=== PATIENT | female | born 2000 | race Caucasian/White ===

== ENCOUNTER 2025-06-07 11:33 | Outpatient (CLI) | payer BC, SELFPAY ==
--- NOTE | ~2025-06-07 | US_ITS ---
EXAMINATION: US OB <=14 wk fetus w TV DATE: 06/07/2025 12:41 INDICATION: First trimester bleeding TECHNIQUE: Real-time pelvic ultrasound utilizing both a transvaginal and transabdominal probe was performed. The interpreting radiologist was not present for the study. COMPARISON: None. FINDINGS: The uterus measures 6.6 x 5.7 x 3.6 cm. There is an intrauterine gestational sac with double deciduous sign and 3 mm yolk sac but no discernible pole. The mean sac diameter measures 11-12 mm, which correlates with an estimated gestational age of 5 weeks and 6 days. The right ovary measures 3.2 x 2.7 x 1.8 cm. The left ovary measures 3.9 x 3.3 x 1.9 cm. There are few small anechoic follicles at both ovaries with larger 2.1 x 2.0 x 1.3 cm anechoic cyst at the left ovary. Vascular flow identified in both ovaries on color Doppler. There is no free fluid in the pelvis. IMPRESSION: 1. Single intrauterine gestational sac with yolk sac but no discernible pole likely due to early stage of . Consider follow-up with serial beta-hCG levels with short interval repeat imaging to confirm viability or more accurate assessment of estimated gestational age. 2. Gestational age by ultrasound based upon mean sac diameter of 5 weeks 6 day(s) +/- 4 day(s) with ultrasound estimated date of delivery ([facility]AYA) of 02/01/2026. Reviewed, dictated and finalized at location A. IMPRESSION: 1. Single intrauterine gestational sac with yolk sac but no discernible p ole likely due to early stage of . Consider follow-up with serial beta -hCG levels with short interval repeat imaging to confirm viability or mo re accurate assessment of estimated gestational age. 2. Gestational age by ultrasound based upon mean sac diameter of 5 weeks 6 day (s) +/- 4 day(s) with ultrasound estimated date of delivery (AMAYA) of 02/01/2026.
--- OUTSIDE RECORDS SUMMARY | 2025-06-07 12:11 | XMS_ITS | Encounter Summary ---
Author Organization [facility] Address [address] [place] [id number] Care Team Providers Care Measurement Supervisor Name Role Phone Ann Paez DO Primary Care Provider [phone] Millie Sam MD Primary Care Provider [phone] None, Provider Primary Care Provider Unavaila ble Ann Paez DO Primary Care Provider [phone] Encounter Details Date Type Department Care Team (Late st Contact Info) Description 01/27/2020 Results Notification [facility] [address] [place], [place] [id number] Lila Vigil FNP Social History Tobacco Use Types Packs/Day Years Used Date Smoking Tobacco: Never Smokeless Tobacco: Never Comments Unknown Sex and Gender Information Value Date Recorded Sex Assigned at Female 11/06/2024 10:37 AM ANTIQUE JEWELRY REPAIRER Legal Sex Female 7:59 AM CDT Gender Identity Female 11/06/2024 10:37 AM ANTIQUE JEWELRY REPAIRER Sexual Orientation Straight 11/06/2024 10 :37 AM ANTIQUE JEWELRY REPAIRER COVID-19 Exposure Response Date Recorded In the last month, have you been in contact with someone who was confirmed or suspected to have Coronavirus / COVID-19? No / Unsure 01/25/2020 9:35 AM CDT documented as of this encounter Progress Notes * PAULO Pathak - 01/27/2020 12:35 PM CDT COVID test negative 1. Discussed current [place] Department of Public Health guidelines for testing and treatment. They willcall you with test results. 2. Vicky Sorneson may return to work once the following conditions are met: ??? Fever free for at least 24 hours without using any fever-reducing medications such as acetaminophen or ibuprofen. ??? Symptoms have improved documented in this encounter Plan of Treatment Not on file documented as of this encounter Visit Diagnoses Not on filedocumented in this encounter Additional Health Concerns Infection Onset Date Last Indicated Resolved Time COVID-19 Rule Out 06/25/2021 06/25/2021 06/25/2021 10:43 AM CDT COVID-19 Confirmed 06/25/2021 06/25/2021 12:34 AM CDT COVID-19 Rule Out 09/16/2021 09/16/2021 09/16/2021 9:13 AM ANTIQUE JEWELRY REPAIRER COVID-19 Rule Out 09/16/2021 09/16/2021 09/17/2021 8:41 PM ANTIQUE JEWELRY REPAIRER COVID-19 Rule Out 03/19/2022 03/19/2022 03/19/2022 11:43 AM CDT COVID-19 Rule Out 03/19/2022 03/19/2022 03/21/2022 12:27 AM CDT COVID-19 Rule Out 04/08/2022 04/08/2022 04/08/2022 11:12 AM CDT documented as of this encounter Care Teams Measurement Supervisor Relationship Specialty Start Date End Date Ann Paez DO [address] [facility] [place] [address] PCP - General FAMILY PRACTICE 01/25/20 06/10/20 Millie Sam MD [address] [facility] [place] [address] PCP - General FAMILY PRACTICE 06/11/20 12/21/22 None, ProviderMD PCP - General UNKNOWN PHYSICIAN SPECIALTY 03/16/24 11/05/24 Ann Paez DO [address] [facility] [place] [address] PCP - General FAMILY PRACTICE 11/06/24 documented as of this encounter
--- OUTSIDE RECORDS SUMMARY | 2025-06-07 12:11 | XMS_ITS | Clinical Summary ---
Author Organization [facility] Address [facility] [place] [address] Care Team Providers Care Service Tech Name Role Phone Ann Paez DO Primary Care Provider [phone] Allergies Active Allergy Reactions Criticality Noted Date Comments Anthrax Vaccine Hives High 06/06/2021 Loc and seizure maybe then hives . In [facility] Human Papillomavirus 4-Jessi t Recombinant Vaccine Seizure High 03/16/2024 1st vax loc and hit head on table. 2nd one had seizure.[facility] [id number] Meloxicam Headache Medium 11/06/2024 And vivid dreams Medications No known medications Active Problems Problem Noted Date Diagnosed Date Tenosynovitis of left wrist 11/07/2024 Menorrhagia with regular cycle 06/07/2021 Overview (08/20/2021): : NuvaRing started at last visit and overall she really likes it, having some issues with positioning and comfort but not too bothersome. 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, thought normal from IUD but sx persisted Had US, concern for embedded IUD, removed at that time (Nov) First cycle resumed 2 months ago Periods are heavy and crampy Would still like to be taking something Has concerns about injectable medications, has had severe reactions with Gardasil and anthrax vaccinations She also has a history of migraine without aura She also has a family history of breast cancer in her mother Assessment & Plan (08/20/2021 1:53 PM TORCH BRAZER): Continue NuvaRing for now Currently she is not using continuously but she can try doing that in a few months and she may have some better success at avoiding breakthrough bleeding if she waits for her uterine lining to thin out a bit We also discussed possibly putting her back on control pills but those had their own issues, she still had dysmenorrhea and it seemed to worsen her acne For now she is okay with NuvaRing and we have given her a refill for a year Assessment & Plan (06/07/2021 7:50 AM CDT): Discussed different medical eligibility criteria Would like to try vaginal ring, has used this before Discussed wearing for 3 weeks versus continuous use Cystic acne 06/07/2021 Overview (08/20/2021): : Doing great on minocycline, taking 50 mg once a day and her skin is dramatically clearer SEP21: Put on adapalene which helps a bit Spironolactone made her urinate a lot Assessment & Plan (08/20/2021 1:53 PM TORCH BRAZER): Recommend she continue the antibiotics for 6 months and then do a trial off and see how her skin does Assessment & Plan (06/07/2021 7:51 AM CDT): Will do trial of minocycline Dermatology referral line Healthcare maintenance 06/07/2021 Overview (06/07/2021): Colon screening: Hep C: Lung screening: AAA screening: Breast screening: Cervical screening: DEXA: She would like to get a Covid vaccination but she had loss of consciousness x2 after Gardasil, on the second 1 there was concern for seizure, never went to ER or had neurology evaluation While deployed she had the anthrax vaccine, tolerated the first 2 doses okay but on the third dose she felt presyncopal and developed hives and vomiting, did not finish the series. 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 she had upper respiratory symptoms She went to seek medical care and tested negative for Covid but upon discharge and reviewing her paperwork she found documentation that stated she actually tested positive and quarantined Assessment & Plan (06/07/2021 7:54 AM CDT): Discussed the risk versus benefits of Covid vaccination, the anthrax vaccination could have been a true allergy but the Gardasil shots may have just been vasovagal which is something we see commonly in this age group and she has evidence for being sensitive to this We will going to check Covid antibodies given her recent report of possibly testing positive, this may give her a little more time to decide on vaccination Need to discuss Pap test next visit Requests STI screening today Migraine without aura and wi thout status migrainosus, not intractable 06/07/2021 Overview (06/07/2021): Has hx of rare migraines ; had lot of issues with milder headaches while deployed Not sure if it was the Air quality in [facility] At one point had CASON daily Has been back for about 1 month CASON are still there but less frequent Temples vs whole head, alternates Pain is throbbing with occ sharp pain +photo/phono sensitivity No n/v No aura No pnd Assessment & Plan (06/07/2021 7:56 AM CDT): Has a lot of fluid on exam consistent with uncontrolled allergies which may be worsening her headaches Discussed antihistamines plus nasal steroid Let me know if symptoms do not improve Resolved Problems Problem Noted Date Diagnosed Date Resolved Date Tenosynovitis of right wrist 11/03/2024 11/07/2024 Immunizations Immunization Administration Dates Next Due Afluria 36 MONTHS+ (Prefille d Syringe IIV4) 07/31/2019 Dtap 05/15/2004, 9,01/16/1999,06/1999,1998 Flucelvax 6 Months+ (Prefilled Syringe) 06/13/20 20 H1N1 2009 Influenza Vaccine 07/25/2009 H1N1 Injectable 2009 Influenza 07/25/2009 HPV 08/14/2011 HPV4 (Gardasil) 06/03/2011 Hepatitis A (Generic) 06/03/2011, 011,06/12/2010,06/2010 Hepatitis B 01/16/1999,1998,1998 Hepatitis B Pediatric 1998 Hib 09/30/1999 Hib (Generic) 09/30/1999, 9,1998,09/04 Hib-Hepatitis B (Comvax) 01/16/1999 Influenza (Generic) 08/24/2012 Influenza Adult (Generic) 12/02/2022,12/2020,06/13/2020,09/03 MENINGOCOCCAL A C Y&W-135 oligosaccharide (MENVEO) 05/05/2016 MMR 05/15/2004,07/01/1999 Meningococcal (Generic) 05/05/2016,06/12/2010 Opv 07/01/1999 Polio IPV (Ipol) 05/15/2004,1998 Polio Ipv (Generic) 05/15/2004,1998,1997 Polio Opv (Generic) 07/01/1999 Rotavirus (Generic) 1998 Rotavirus (Rotashield) 1998 Tdap (Generic) 06/12/2010 Varicella Vaccine 06/03/2011,07/15/2001 Family History Medical History Relation Comments ulcerative colitis Father Parkinson's Disease Maternal Grandmother Breast Cancer Mother lymphoma Mother Diabetes Paternal Grandmother Heart Disease Paternal Grandmother Relation Status Comments Father Alive Maternal Grandfather Alive Maternal Grandmother Alive Mother Alive estrogen based b reast cancer Paternal Grandfather Alive Paternal Grandmother (Age 70s) chf dm Social History Tobacco Use Types Packs/Day Years Used Date Smoking Tobacco: Never Smokeless Tobacco: Never Tobacco Cessation:Counseling Given: No Alcohol Use Standard Drinks/Week Comments Yes 0 (1 standard drink = 0.6 oz pur e alcohol) PHQ-2 Answer Date Recorded Patient Health Questionnaire-2 Score 0 11/06/2024 Comments No Sex and Gender Information Value Date Recorded Sex Assigned at Female 11/06/2024 10:37 AM TORCH BRAZER Legal Sex Female 7:59 AM CDT Gender Identity Female 11/06/2024 10:37 AM TORCH BRAZER Sexual Orientation Straight 11/06/2024 10 :37 AM TORCH BRAZER Last Filed Vital Signs Vital Sign Reading Time Taken Comments Blood Pressure 98/58 11/06/2024 10:14 AM TORCH BRAZER Pulse 64 11/06/2024 10:14 AM TORCH BRAZER Temperature 36.5 C (97.7 F) 11/06/2024 10:14 AM TORCH BRAZER Respiratory Rate 16 03/16/2024 1:53 PM CDT Oxygen Saturation 99% 11/06/2024 10:14 AM TORCH BRAZER Inhaled Oxygen Concentration - - Weight 60.8 kg (134 lb) 11/06/2024 10:14 AM TORCH BRAZER Height 154.9 cm (5' 1) 11/06/2024 10:14 AM TORCH BRAZER Body Mass Index 25.32 11/06/2024 10:14 AM TORCH BRAZER Plan of Treatment Health Maintenance Due Date Last Done Comments Annual Physical 2001 Hepatitis C 2016 DTaP, Tdap and Td Vaccines (7 - Td or Tdap) 06/12/2020 06/12/2010, 05/15/2004, 09/30/1999, Additional history exists COVID-19 Vaccine (2024- season) 2025 10/03/2021, 08/22/2021 Cervical Cancer Screening Pap Smear (Age 21 to 29) Every 3 Years 02/23/2026 02/23/2023, 02/23/2023, 02/23/2023 Cervical Cancer Screening 02/23/2026 HPV Vaccines (3 - 2-dose series) 11/04/2034 08/14/2011, 06/03/2011 Postponed from 12/02/2011 (Allergy) Hepatitis B Vaccines Completed 01/16/1999, 01/16/1999, 1998, Additional history exists Meningococcal Vaccine Aged Out 05/05/2016 , 05/05/2016, 06/12/2010 No longer eligible based on patient's age to complete this topic PHQ-2 ([facility]) Completed 11/06/2024 Meningococcal B Vaccine Aged Out No l onger eligible based on patient's age to complete this topic Pneumococcal Vaccine: Pediatrics (0 to 5 Years) and At-Risk Patients (6 to 49 Years) Aged Out No longer eligible based on patient's age to complete this topic RSV Immunizations Under 20 Months Aged Out No longer eligible based on patient's age to complete this topic Insurance [facility] Advance Directives Documents on File Type Date Recorded Patient Call Center Specialist Expl anation Legal Documents 01/27/2020 COVID 19 RES ULTS Care Teams Service Tech Relationship Specialty Start Date End Date Ann Paez DO [address] [place] [address] [place] [address] PCP - General FAMILY PRACTICE 11/06/24
== END 2025-06-07 11:34 | disposition home or self-care (01) ==
PROVIDERS: PCP Obstetrics & Gynecology; Visit Provider Obstetrics & Gynecology
DX: O46.91 Antepartum hemorrhage, unspecified, first trimester (principal); Z3A.01 Less than 8 weeks gestation of pregnancy
CPT/HCPCS: 76801; 76817